=== PATIENT | female | born 1940 | race Caucasian/White ===

== ENCOUNTER → 2019-04-18 | Outpatient (REF) | payer MEDICARE, BC ==
[2019-04-18 15:41] LABS: HEMATOCRIT 41.1 % (36.0-47.0); HEMOGLOBIN 13.6 g/dl (12.0-15.5); MEAN CORPUSCULAR HEMOGLOBIN 33.2 pg (27.0-33.0); MEAN CORPUSCULAR HGB CONC 33.1 g/dl (32.0-36.5); MEAN CORPUSCULAR VOLUME 100.2 fl (80.0-96.0); PLATELET COUNT, AUTOMATED 157 10^3/uL (150-450); WHITE BLOOD COUNT 4.4 10^3/uL (4.0-10.0)
[2019-04-18 15:49] LABS: ALBUMIN 3.9 GM/DL (3.2-5.2); ALT/SGPT 28 U/L (12-78); BILIRUBIN,TOTAL 0.5 MG/DL (0.2-1.0); BLOOD UREA NITROGEN 21 MG/DL (7-18); CALCIUM LEVEL 9.4 MG/DL (8.8-10.2); CARBON DIOXIDE LEVEL 28 MEQ/L (21-32); CHLORIDE LEVEL 106 MEQ/L (98-107); CHOLESTEROL LEVEL 183 MG/DL (<200); CHOLESTEROL RISK RATIO 2.346 (<5); GLOMERULAR FILTRATION RATE > 60.0 (>39); GLUCOSE, FASTING 76 MG/DL (70-100); HDL CHOLESTEROL 78 MG/DL (>40); LDL CHOLESTEROL 81 MG/DL (<100); MAGNESIUM LEVEL 1.7 MG/DL (1.8-2.4); NON-HDL-C 105 MG/DL; POTASSIUM SERUM 3.8 MEQ/L (3.5-5.1); SODIUM LEVEL 141 MEQ/L (136-145); THYROID STIMULATING HORMONE 0.506 uIU/ML (0.358-3.740); TOTAL PROTEIN 7.1 GM/DL (6.4-8.2); TRIGLYCERIDES LEVEL 121 MG/DL (<150)
[2019-04-18 15:54] LABS: FOLATE 6.5 NG/ML; VITAMIN B12 LEVEL 238 PG/ML
== END ==
LOC: M SFHCPLAZ 10:31
PROVIDERS: ATTEND Internal Medicine
DX: I10 Essential (primary) hypertension (principal); E78.00 Pure hypercholesterolemia, unspecified; E03.9 Hypothyroidism, unspecified; R26.89 Other abnormalities of gait and mobility; Z80.0 Family history of malignant neoplasm of digestive organs; Z11.59 Encounter for screening for other viral diseases; H61.23 Impacted cerumen, bilateral
CPT/HCPCS: 69209; 80053; 80061; 82607; 82746; 83735; 84443; 85027; G0463; G0472

== ENCOUNTER 2019-06-21 09:21 | Day surgery (SDC) | payer MEDICARE, BC ==
[~2019-06-21] VITALS: Ht 152.4 cm; Wt 60.8 kg
[~2019-06-21 09:21] MED LIST: ATOR1TAB21 PO; B-122500 PO; D-10TAB2 PO; FISH1000 PO; LEVO100T5 PO; LIDOCAINE 2% INJ 100 MG/5 ML SDV (FOR ANES.) As Ordered ONE; LISI20TA20 PO; LR 1,000 ML IV ONE; MIDAZOLAM INJ 2 MG/2 ML VIAL (J2250) As Ordered ONE; OCUVTAB PO; PROPOFOL 200 MG/20 ML VIAL As Ordered ONE; ROCURONIUM BROMIDE 50 MG/5 ML VIAL As Ordered ONE; SERT-138 PO; fentaNYL 250 MCG/5 ML INJECTION (J3010) As Ordered ONE
[2019-06-21] MEDS ORDERED: LACRILUBE (AKWA TEARS) OPHTH OINT 3.5 GM As Ordered ONE (11:26)
[2019-06-21] MEDS ORDERED: BUPIVACAINE HCL 0.25% 30 ML VIAL As Ordered ONE (11:56)
[2019-06-21] MEDS ORDERED: BUPIVACAINE LIPOSOME/PF 1.3% 20ML VIAL (13.3MG/ML)(EXPAREL)(C9290 PER1MG) As Ordered ONE (11:57)
[2019-06-21] MEDS ORDERED: ePHEDrine SULFATE 25 MG/5 ML(5MG/ML) SYRINGE As Ordered ONE (13:22)
[2019-06-21] MEDS ORDERED: dexameTHASONE 4 MG/ML 1ML VIAL (J1100) As Ordered ONE (13:23)
[2019-06-21] MEDS ORDERED: ONDANSETRON 4MG/2ML VIAL (J2405) As Ordered ONE (13:23)
[2019-06-21] MEDS ORDERED: KETOROLAC 60 MG/2 ML VIAL (J1885) As Ordered ONE (13:23)
[2019-06-21] MEDS ORDERED: ACETAMINOPHEN 1000MG 100ML IV BTL (OFIRMEV) (J0131 PER 10MG) As Ordered ONE (14:00)
[2019-06-21] MEDS ORDERED: SUGAMMADEX SODIUM 500 MG/5 ML VIAL (BRIDION) As Ordered ONE (14:26)
[2019-06-21] MEDS ORDERED: ONDANSETRON 4MG/2ML VIAL (J2405) IV PRN (15:15)
[2019-06-21] MEDS ORDERED: LR 1,000 ML IV SCH (15:15)
[2019-06-21] MEDS ORDERED: NORCO, ANEXSIA 5/325MG TABLET (HYDROcodone/ACETAMINOPHEN) PO PRN (15:15)
[2019-06-21] MEDS ORDERED: fentaNYL 100 MCG/2 ML INJECTION (J3010) IV PRN (15:15)
[2019-06-21] MEDS ORDERED: PERCOCET 5MG/325MG TAB PO PRN (15:15)
[2019-06-21] MEDS ORDERED: ACETAMINOPHEN TAB 650MG DOSE (2X325MG) PO PRN (15:15)
[2019-06-21 17:15] VITALS: BP 155/68
--- NOTE | 2019-06-22 22:39 | RO ---
DATE OF PROCEDURE: 06/21/2019 PREOPERATIVE DIAGNOSIS: Ventral incisional hernia. POSTOPERATIVE DIAGNOSES: 1. Ventral incisional hernia. 2. Extensive intra-abdominal adhesions. PROCEDURE PERFORMED: Robotic-assisted laparoscopic repair of ventral incisional hernia with Parietex mesh. SURGEON: Rodrigo Zapata MD SECURITY [employer]OL ROOM OFFICER: ANESTHESIA: General. INDICATIONS FOR PROCEDURE The patient is a 79-year-old woman who had undergone a laparoscopic colon resection in late 2015 at another institution. She developed a hernia through the trocar site in the left midabdomen and this was initially repaired primarily also at another institution and then repaired for a recurrence with mesh in March 2017. Over the past year or so she noticed a small bulge above the umbilicus near the midline consistent with another hernia. She was recently seen in the office and scheduled for a laparoscopic robotically assisted repair of his hernia. OPERATIVE PROCEDURE The patient was brought to the operating room and placed supine on the operating table. She was placed under general endotracheal anesthesia. TEDs and sequentials were utilized. The patient's abdomen was prepped and draped in a sterile fashion. 0.25% Marcaine was infiltrated at each of the trocar sites as needed. Initially a small incision was made high in the left upper quadrant below the costal margin. A Veress needle was inserted and after positive hanging drop test the abdomen was insufflated with carbon dioxide gas. An 8 mm robotic Visiport was placed over the 5 mm scope and this was advanced through the abdominal wall without difficulty. On entering the abdomen, the patient was noted to have some adhesions of some omentum to the anterior abdominal wall. A second trocar was placed in the left lateral abdomen just below some adhesions that were apparent and a third trocar was placed lower in the left lower quadrant. The camera was shifted to the lower trocar site and inspection showed fairly extensive adhesions of the omentum to a piece of mesh on the anterior abdominal wall in the left upper quadrant extending over toward the midline. In order to have enough room to insert the robotic instruments I proceeded to take down some of the adhesions that were most inferior and to the left using a pair of endoscopic cauterizing scissors. Once a small area had been cleared the [facility] patient cart was brought into position and the endoscope port was docked and the camera inserted. A pair of cauterizing scissors was inserted through the middle port with the camera in the lower port. I then proceeded with the robotic portion of the procedure. The adhesions were taken down from the anterior abdominal wall. This largely required a combination of cautery and sharp dissection, although once the midportion of the mesh had been exposed it was possible to sweep some of these adhesions away. Once the left upper quadrant trocar site had been better exposed, the camera was placed into the middle port with scissors superiorly and a grasper inferiorly. The dissection of the adhesions continued until these had all been addressed and the omentum completely freed. The hernia had been identified as lying through the area beneath the falciform ligament and some midline preperitoneal fat. The peritoneum was incised just above where the existing mesh ended and a peritoneal flap was developed by a combination of sharp and cautery dissection extending to the right side of the abdomen, elevating the preperitoneal fat and falciform ligament away from the fascia. As the flap was raised the fascial defect was identified extending transversely beneath the midportion of this area. The defect was perhaps 2- to 2-1/2 cm transversely. There was a second much smaller defect about 1 cm from this. A #1-0 Stratafix suture was used to close the fascial defect transversely. In order to facilitate this the intra-abdominal pressure was reduced to approximately 8 mmHg. The small adjacent defect was incorporated into the closure of the larger defect with the Stratafix. This appeared to give a good solid closure of the fascia. A 9 cm round Parietex patch was selected. This was reference code [id number], lot #[id number]. This was trimmed approximately a centimeter on each side to create a roughly 9 cm long x 7 cm wide irregular ellipse. This was inserted into the abdomen and placed into the opening created beneath the flap and fit very nicely. A #2-0 V-Loc suture was used to suture the mesh securely over the center of the defect and then to place a circumferential suture around the edge of the mesh nicely fixing this in place, centered over the sutured fascial defect. The peritoneal incision was then closed using a running #2-0 undyed V-Loc suture. Final inspection of the area of adhesiolysis showed no evidence of any bleeding. The robotic instruments were removed and the robot undocked. I then returned to the patient's side. The abdomen was deflated and the trocars were all removed. The incisions were infiltrated with additional local anesthesia and closed with buried sutures of Vicryl. Steri-Strips were applied followed by light dressings. The patient tolerated the procedure well without apparent complication. She was awakened in the operating room, extubated and moved to the recovery room in stable condition. LATASHA
== END 2019-06-21 17:20 | disposition home or self-care (01) ==
LOC: M SDC 09:21
PROVIDERS: ATTEND Surgery
DX: K43.2 Incisional hernia without obstruction or gangrene (principal); K66.0 Peritoneal adhesions (postprocedural) (postinfection); I10 Essential (primary) hypertension; E78.00 Pure hypercholesterolemia, unspecified; M85.80 Other specified disorders of bone density and structure, unspecified site; E03.9 Hypothyroidism, unspecified; K21.9 Gastro-esophageal reflux disease without esophagitis; Z79.899 Other long term (current) drug therapy; Z87.891 Personal history of nicotine dependence
CPT/HCPCS: 49329; 49654; C1781; J0131; J1100; J1885; J2250; J2405; J3010